=== PATIENT | female | born 1995 | race Caucasian/White ===

== ENCOUNTER 2017-12-13 17:47 | Emergency (ER) | payer MEDICAID, OTHER ==
[~2017-12-13] VITALS: Ht 154.9 cm; Wt 66.0 kg
[2017-12-13] MEDS ORDERED: FAMOTIDINE 20MG/2ML VIAL IV STA (20:51)
[2017-12-13] MEDS ORDERED: METOCLOPRAMIDE HCL 10MG/2ML VIAL IV STA (20:51)
[2017-12-13] MEDS ORDERED: KETOROLAC 30MG/ML VIAL IV STA (20:51)
[2017-12-13] MEDS ORDERED: DIPHENHYDRAMINE 50MG/ML VIAL IV ONE (21:00)
[2017-12-13 21:30] LABS: CLARITY URINE CLEAR (CLEAR); COLOR URINE YELLOW (YELLOW); KETONES URINE NEGATIVE (NEGATIVE); LEUKOCYTE ESTERASE URINE TRACE (NEGATIVE); NITRITE URINE NEGATIVE (NEGATIVE); OCCULT BLOOD URINE NEGATIVE (NEGATIVE); PH URINE 7.5 (4.5-8.0); PROTEIN URINE NEGATIVE (NEGATIVE); SPECIFIC GRAVITY URINE 1.008 (1.005-1.030)
[2017-12-13 21:30] LABS: BASOPHILS % 0.5 % (0.0-2.0); EOSINOPHILS % 3.2 % (0.0-5.0); HEMATOCRIT. 43.1 % (36.0-48.0); LYMPHOCYTES % 33.8 % (20.0-50.0); MEAN CORPUSCULAR HEMOGLOBIN 29.7 pg (28.0-32.0); MEAN CORPUSCULAR VOLUME 85.5 fL (81.0-99.0); MEAN PLATELET VOLUME 7.6 fl (7.4-10.4); MONOCYTES % 5.3 % (2.0-8.0); NEUTROPHILS % 57.2 % (40.0-76.0); PLATELET 312 x1000/uL (130-400); RED BLOOD CELL COUNT 5.04 mill/uL (4.2-5.4); RED CELL DISTRIBUTION WIDTH 12.8 % (11.6-14.6)
[2017-12-13 21:34] LABS: CHLORIDE 105 mEq/L (98-107)
[2017-12-13 23:24] VITALS: BP 130/85
== END 2017-12-13 23:26 | disposition home or self-care (01) ==
LOC: ER 17:47
DX: N39.0 Urinary tract infection, site not specified (principal); R51 Headache; M54.6 Pain in thoracic spine; M54.30 Sciatica, unspecified side; K76.0 Fatty (change of) liver, not elsewhere classified; Z98.890 Other specified postprocedural states
CPT/HCPCS: 36415; 70450; 76705; 80053; 81003; 81025; 83690; 85025; 87086; 96374; 96375; 99285; J1200; J1885; J2765; J3490; Z7610

== ENCOUNTER 2018-02-02 16:54 | Emergency (ER) | payer MEDICAID, OTHER ==
[~2018-02-02] VITALS: Ht 152.4 cm; Wt 64.2 kg
[2018-02-02] MEDS ORDERED: SODIUM CHLORIDE 0.9% 1,000 ML IV ONE (18:42)
[2018-02-02] MEDS ORDERED: METOCLOPRAMIDE HCL 10MG/2ML VIAL IV ONE (18:45)
[2018-02-02] MEDS ORDERED: DIPHENHYDRAMINE 50MG/ML VIAL IV ONE (18:45)
[2018-02-02 19:04] LABS: BASOPHILS % 0.7 % (0.0-2.0); EOSINOPHILS % 3.6 % (0.0-5.0); HEMATOCRIT. 41.1 % (36.0-48.0); HEMOGLOBIN. 14.4 g/dL (12.0-16.0); LYMPHOCYTES % 39.1 % (20.0-50.0); MEAN CORPUSCULAR HEMOGLOBIN 30.2 pg (28.0-32.0); MEAN CORPUSCULAR VOLUME 86.3 fL (81.0-99.0); MEAN PLATELET VOLUME 7.8 fl (7.4-10.4); MONOCYTES % 6.1 % (2.0-8.0); NEUTROPHILS % 50.5 % (40.0-76.0); PLATELET 290 x1000/uL (130-400); RED BLOOD CELL COUNT 4.77 mill/uL (4.2-5.4); RED CELL DISTRIBUTION WIDTH 12.5 % (11.6-14.6)
[2018-02-02 19:07] LABS: CLARITY URINE CLEAR (CLEAR); COLOR URINE YELLOW (YELLOW); KETONES URINE NEGATIVE (NEGATIVE); LEUKOCYTE ESTERASE URINE NEGATIVE (NEGATIVE); NITRITE URINE NEGATIVE (NEGATIVE); OCCULT BLOOD URINE NEGATIVE (NEGATIVE); PROTEIN URINE NEGATIVE (NEGATIVE); SPECIFIC GRAVITY URINE 1.005 (1.005-1.030); UROBILINOGEN URINE 0.2 E.U./dL (0.2-1.0)
[2018-02-02 19:09] LABS: CHLORIDE 105 mEq/L (98-107)
[2018-02-02 20:50] VITALS: BP 108/70
== END 2018-02-02 20:54 | disposition home or self-care (01) ==
LOC: ER 16:54
DX: R10.9 Unspecified abdominal pain (principal); R51 Headache; R11.0 Nausea; R42 Dizziness and giddiness
CPT/HCPCS: 36415; 80053; 81003; 81025; 85025; 96361; 96374; 96375; 99285; J1200; J2765; J7030

== ENCOUNTER 2018-05-24 01:20 | Emergency (ER) | payer SELFPAY ==
[~2018-05-24] VITALS: Ht 160 cm; Wt 63.0 kg
[2018-05-24 02:23] LABS: CLARITY URINE TURBID (CLEAR); COLOR URINE YELLOW (YELLOW); KETONES URINE NEGATIVE (NEGATIVE); LEUKOCYTE ESTERASE URINE 3+ (NEGATIVE); NITRITE URINE NEGATIVE (NEGATIVE); OCCULT BLOOD URINE 2+ (NEGATIVE); PROTEIN URINE 2+ (NEGATIVE); SPECIFIC GRAVITY URINE 1.023 (1.005-1.030)
[2018-05-24 07:03] VITALS: BP 106/62
== END 2018-05-24 07:10 | disposition home or self-care (01) ==
LOC: ER 01:20
DX: N39.0 Urinary tract infection, site not specified (principal)
CPT/HCPCS: 81025; 87077; 87186; 99284